=== PATIENT | male | born 1980 | race American Indian/Alaskan Native ===

== ENCOUNTER 2020-03-20 18:11 | Emergency (ER) | payer SELFPAY ==
[2020-03-20 18:18] VITALS: BP 131/74
--- NOTE | 2020-03-20 18:18 | Event Note ---
ED Screening Note ED Screening Note: pain sp glf This initial assessment/diagnostic orders/clinical plan/treatment(s) is/are subject to change based on patients health status, clinical progression and re- assessment by fellow clinical providers in the ED. Further treatment and workup at subsequent clinical providers discretion. Patient/guardian urged not to elope from the ED as their condition may be serious if not clinically assessed and managed. Initial orders include: xr
[2020-03-20] MEDS ORDERED: IBUPROFEN 800 MG TAB PO ONE (18:26)
--- NOTE | 2020-03-20 18:26 | Emergency Department Report ---
ED Lower Extremity HPI - General Chief Complaint: Fall Stated Complaint: LEFT LEG INJURY Time Seen by Provider: 03/20/20 18:17 Source: patient Mode of arrival: Ambulatory Limitations: No Limitations - History of Present Illness Initial Comments: Patient is a 40-year-old -[place] male who comes to the ER after [facility] and [place] [facility] [place] He comes in with left leg pain and low back pain. He denies hitting his head. He denies LOC. He is ambulatory to the ER in a private vehicle. Patient neurologically intact. Vital signs are stable. Patient states this was a mechanical fall due to a wet floor. It was ground- level in nature. Complaint: knee injury -: Sudden, hour(s) Place: other Improves With: nothing Worsens With: movement - Related Data Previous Rx's Medication Instructions Recorded Last Taken Type Ibuprofen [Motrin] 800 mg PO Q8HR PRN #30 tablet 03/20/20 Unknown Rx Allergies Allergy/AdvReac Type Severity Reaction Status Date / Time No Known Allergies Allergy Unverified 03/20/20 18:15 ED Review of Systems ROS: Stated complaint: LEFT LEG INJURY Other details as noted in HPI Comment: All other systems reviewed and negative ED Past Medical Hx - Past Medical History Previous Medical History?: No - Surgical History Past Surgical History?: No - Family History Family history: no significant - Social History Smoking Status: Current Every Day Smoker Substance Use Type: None - Medications Home Medications: Home Medications Medication Instructions Recorded Confirmed Last Taken Type Ibuprofen [Motrin] 800 mg PO Q8HR PRN #30 tablet 03/20/20 Unknown Rx ED Physical Exam - General Limitations: No Limitations General appearance: alert, in no apparent distress - Head Head exam: Present: atraumatic, normocephalic - Eye Eye exam: Present: normal appearance - ENT ENT exam: Present: mucous membranes moist - Neck Neck exam: Present: normal inspection - Respiratory Respiratory exam: Present: normal lung sounds bilaterally. Absent: respiratory distress - Cardiovascular Cardiovascular Exam: Present: regular rate, normal rhythm. Absent: systolic murmur, diastolic murmur, rubs, gallop - GI/Abdominal GI/Abdominal exam: Present: soft, normal bowel sounds - Rectal Rectal exam: Present: deferred - Extremities Exam Extremities exam: Present: normal inspection - Expanded Lower Extremity Exam Left Lower Leg exam: Present: ecchymosis - Back Exam Back exam: Present: normal inspection - Neurological Exam Neurological exam: Present: alert, oriented X3 - Psychiatric Psychiatric exam: Present: normal affect, normal mood - Skin Skin exam: Present: warm, dry, intact, normal color. Absent: rash ED Course Vital Signs 03/20/20 03/20/20 18:15 18:17 Temperature 98.2 F 98.2 F Pulse Rate 88 98 H Respiratory 18 18 Rate Blood Pressure 131/74 131/74 O2 Sat by Pulse 99 99 Oximetry ED Lower Extremity MDM - Radiology Data Radiology results: report reviewed, image reviewed - Medical Decision Making Contusion noted to the lateral left leg. X-ray negative for fracture Patient educated on soft tissue injury. He has been medicated for pain in the ER. Patient being discharged to home with orthopedic follow-up if needed. Vital Signs 03/20/20 03/20/20 18:15 18:17 Temperature 98.2 F 98.2 F Pulse Rate 88 98 H Respiratory 18 18 Rate Blood Pressure 131/74 131/74 O2 Sat by Pulse 99 99 Oximetry - Differential Diagnosis RO FX Critical care attestation.: If time is entered above; I have spent that time in minutes in the direct care of this critically ill patient, excluding procedure time. ED Disposition Clinical Impression: Fall, Knee contusion, Back strain Disposition: DC-01 TO HOME OR SELFCARE Is pt being admited?: No Does the pt Need Aspirin: No Condition: Stable Instructions: Contusion in Adults (ED) Additional Instructions: ICE REST ELEVATE LEG MOTRIN OR TYLENOL FOR PAIN FOLLOW UP WITH DR MORGAN IF PAIN PERSISTS REFERRAL BELOW Prescriptions: Ibuprofen [Motrin] 800 mg PO Q8HR PRN #30 tablet PRN Reason: Pain, Moderate (4-6) Referrals: EMORY MORGAN MD [Staff Physician] - 3-5 Days Time of Disposition: 18:57
--- NOTE | 2020-03-20 19:13 | XRay Report ---
LEFT KNEE 3 VIEWS INDICATION / CLINICAL INFORMATION: MAIN: pain sp fall; pt c/o left knee pain that started after slipping on wet floor at [employer]. pt bear es hitting head. pt also c/o back pain. rr even and nonlabored COMPARISON: None available. FINDINGS: BONES / JOINT(S): No acute fracture or subluxation. No significant arthritis. SOFT TISSUES: No significant abnormality. ADDITIONAL FINDINGS: None. Signer Name: Yazan Romero MD Signed: 03/20/2020 7:09 PM Workstation Name: [id number]
== END 2020-03-20 19:20 | disposition home or self-care (01) ==
LOC: ED 18:11
DX: S39.012A Strain of muscle, fascia and tendon of lower back, initial encounter (principal); S80.02XA Contusion of left knee, initial encounter; F17.200 Nicotine dependence, unspecified, uncomplicated; Z79.1 Long term (current) use of non-steroidal anti-inflammatories (NSAID); X50.1XXA Overexertion from prolonged static or awkward postures, initial encounter; Y93.89 Activity, other specified; Y92.89 Other specified places as the place of occurrence of the external cause; Y99.8 Other external cause status
CPT/HCPCS: 99283